=== PATIENT | female | born 1995 | race Caucasian/White ===

== ENCOUNTER 2023-07-23 11:51 | Emergency (ER) | payer OTHER, SELFPAY ==
[2023-07-23 11:52] VITALS: BP 141/100
--- NOTE | 2023-07-23 12:35 | ED.GENMED ---
History of Present Illness
General
Chief Complaint: Abdominal Pain
Time Seen by Provider: 07/23/23 12:10
Travel History
Have you had any contact with someone who has COVID-19?: No
Do you have any symptoms of coronavirus? Fever > 100 degrees, chills, cough, shortness of breath, sore throat, loss of taste or smell, muscle aches, or headache?: No
History of Present Illness
History of Present Illness:
27-year-old female with history of PCOS and morbid obesity presents to the emergency department for evaluation of left upper abdominal pain beginning approximately 10 to 12 hours prior to arrival associated with nausea and vomiting. Similar
presentation to this emergency department late in [address] scan. Patient reports that after the onset of symptoms she attempted to take Pepcid and omeprazole without relief. Does report frequent NSAID use at least once daily,
denies alcohol or tobacco use. No prior abdominal surgical history.
Past History
Past History
ED Past Medical History: Other (Morbid obesity)
ED Past Surgical History: None
Social History
Tobacco: Non-smoker
Alcohol: None
Drug: Marijuana
Personal: Single
Living: with family
Review of Systems
Review of Systems
Allergies reviewed?: Yes
All Other Systems: ROS reviewed and negative except as documented in HPI and ROS
Phy Exam
Physical Exam
Physical Exam:
GEN: Well appearing, NAD, WDWN
Eyes: PERRLA, EOMs intact, no scleral icterus
HENT: NCAT, oral mucosa moist
Lungs: CTAB, no wheezes, rales, rhonchi, normal chest wall excursion
Cardiac: RRR, no M/R/G Radial pulses 2+ bilat
Abdomen: Body habitus limits exam, mild epigastric tenderness without rigidity, no right upper quadrant tenderness, negative Cardona sign
Neuro: AO x 3
MSK: No gross deformity or ecchymosis.
Skin: No rashes, petechiae. Normal color, no pallor or jaundice.
Psych: Calm, cooperative, proper hygiene
Course
Orders/Labs/Results
Orders:
Orders
07/23/23 12:34
0.9% Sodium Chloride 1000 ml [Nss] 1,000 ml IV BOLUS
Ketorolac [Toradol] 15 mg IV NOW STA
Ondansetron Injectable [Zofran] 4 mg IV NOW STA
Test Result ONCE
07/23/23 12:50
Complete Blood Count/With Diff Urgent
Comprehensive Metabolic Panel Urgent
HCG, Serum Qualitative Screen Urgent
Lipase Urgent
Urinalysis Reflex To Culture Urgent
Date Specimen was Collected: 07/23/23
Time Specimen was Collected: 12:39
Urine Microscopic Reflex Cult Urgent
07/23/23 13:39
CT Abd/Pel (IV only)-DH only Urgent
Comment:
Reason For Exam: upper abd pain/vomiting
07/23/23 13:50
Morphine Sulfate 4 mg IV NOW STA
Abnormal Lab Results
07/23/23
12:50
WBC 14.4 H 10^3/uL
(4.8-10.8)
Hgb 11.8 L g/dL
(12.0-16.0)
Hct 36.6 L %
(37.0-47.0)
MCV 75.5 L fL
(81.0-99.0)
MCH 24.3 L pg
(27.0-31.0)
MCHC 32.2 L g/dL
(33.0-37.0)
RDW 15.9 H %
(11.5-14.5)
Abs Immat Gran (auto) 0.1 H 10^3/uL
(0-0.05)
Absolute Neuts (auto) 11.3 H 10^3/uL
(1.4-6.5)
Immature Gran % 0.8 H %
(0-0.5)
Neutrophils % 78.4 H %
(42.2-75.2)
Lymphocytes % 15.4 L %
(20.5-51.1)
Chloride 108 H mmol/L
(98-107)
Carbon Dioxide 21 L mmol/L
(22-30)
Urine Ketones Trace A
(Negative)
Ur Occult Blood Reflex Trace A
(Negative)
Urine Bacteria (Reflex) Few A
(Negative)
07/23/23 12:50
07/23/23 12:50
Vital Signs
Initial and Last Documented VS:
Initial Vital Signs
Temp Pulse Resp BP Pulse Ox
97.8 F 73 20 141/100 100
07/23/23 11:52 07/23/23 11:52 07/23/23 11:52 07/23/23 11:52 07/23/23 11:52
Last Documented Vital Signs
Temp Pulse Resp BP Pulse Ox
97.8 F 73 20 141/100 100
07/23/23 11:52 07/23/23 11:52 07/23/23 11:52 07/23/23 11:52 07/23/23 11:52
MDM/Problems Addressed
MDM/Problems Addressed:
Labs reveal mild leukocytosis with no other concerning findings. Due to the patient's body habitus limiting exam a CT was then obtained which showed no evidence for acute abdominal pathology. Suspect acute gastritis/peptic ulcer disease, will treat
supportively with PPIs and Carafate, encouraged the patient to take her PPIs daily and not just on demand
*Critical Care Note
Total Time (30-74mins, 75-104mins- exclusive of procedures): Not Applicable
ED Attending Note
-
Portions of this chart may have been created with voice recognition software.� Occasional wrong word or��sound alike� substitutions may have occurred due to the inherent limitations of voice recognition software.
Discharge Plan
Departure
Patient Disposition: Home (Routine Discharge)
Date of Disposition: 07/23/23
Time of Disposition: 15:10
Patient with high blood pressure during this ER visit?: No
Discharge Problem:
Acute upper abdominal pain
Instructions: Abdominal Pain
Prescriptions:
New
sucralfate [Carafate] 1 gram tablet
1 g PO AC Qty: 60 0RF
No Action
ondansetron 4 MG tablet,disintegrating
4 mg PO QIDPRN PRN (Reason: nausea/vomiting) Qty: 20 0RF
albuterol sulfate 2.5 MG/3 ML solution for nebulization
2.5 mg inhalation R Q4HPRN Qty: 30 0RF
prednisone 10 MG tablets,dose pack
10 mg PO Daily Qty: 1 0RF
Rx Instructions:
50mg x 2 days, 40mg x 2 days, 30mg x 2 days, 20mg x 2 days, 10mg x 2 days
Referrals:
Enrique Jean MD [Active] -
Johanna Hay CRNP [Family Provider] -
Activity Restrictions/Additional Instructions:
Continue your omeprazole daily
Take carafate before meals
Follow up with gastroenterology if symptoms do not improve
Interventions
Interventions:
*Risk Screen - Suicide Last Done: 07/23/23 13:24
*Neglect/Abuse Screening Last Done: 07/23/23 13:24
*ED COVID-19 Vaccine History Last Done: 07/23/23 11:52
RY-Sjuhcx-Cxwggavbng Assessment Last Done: 07/23/23 13:24
Discharge Date and Time
Print Language: SETSWANA
[2023-07-23] MEDS: ZOFRAN 4 MG IV (12:50)
[2023-07-23] MEDS: TORADOL 15 MG IV (12:50)
[2023-07-23] MEDS: NSS 1000 IV (12:50)
[2023-07-23 13:02] LABS: % Basophils 0.4 % (0-2); % Eosinophils 0.8 % (0-6); % Immature Granulocytes 0.8 % (0-0.5); % Lymphocytes 15.4 % (20.5-51.1); % Monocytes 4.2 % (1.7-9.3); % Neutrophils 78.4 % (42.2-75.2); Absolute Basophils 0.1 10^3/uL (0-0.2); Absolute Eosinophils 0.1 10^3/uL (0-0.7); Absolute Immature Granulocytes 0.1 10^3/uL (0-0.05); Absolute Lymphocytes 2.2 10^3/uL (1.2-3.4); Absolute Monocytes 0.6 10^3/uL (0.1-0.6); Absolute Neutrophils 11.3 10^3/uL (1.4-6.5); Hematocrit 36.6 % (37.0-47.0); Hemoglobin 11.8 g/dL (12.0-16.0); Mean Corp Hgb Conc. 32.2 g/dL (33.0-37.0); Mean Corpuscular Hgb 24.3 pg (27.0-31.0); Mean Corpuscular Volume 75.5 fL (81.0-99.0); Mean Platelet Volume 8.4 fL (7.4-10.4); Nucleated Red Blood Cells % 0 %; Platelet Count 385 10^3/uL (130-400); Red Blood Cell Count 4.85 10^6/uL (4.20-5.40); Red Cell Dist. Width 15.9 % (11.5-14.5); White Blood Cell Count 14.4 10^3/uL (4.8-10.8)
[2023-07-23 13:13] LABS: HCG, Serum Qualitative Screen Negative
[2023-07-23 13:17] LABS: ALT (SGPT) 16 U/L (0-35); AST (SGOT) 21 U/L (14-36); Alkaline Phosphatase 98 U/L (38-126); Blood Urea Nitrogen 10 mg/dl (7-17); Calcium 9.3 mg/dl (8.4-10.2); Carbon Dioxide 21 mmol/L (22-30); Chloride 108 mmol/L (98-107); Glucose 83 mg/dl (70-99); Lipase 73 U/L (23-300); Potassium 4.1 mmol/L (3.5-5.1); Sodium 136 mmol/L (135-145); Total Bilirubin 0.4 mg/dl (0.2-1.3); eGFR > 60.00
[2023-07-23] MEDS: MORPHINE SULFATE 4 MG IV (14:00)
[2023-07-23 14:10] LABS: Urine Albumin Negative (Neg - Trace); Urine Bilirubin Negative (Negative); Urine Character Clear (Clear); Urine Color Yellow; Urine Glucose Negative (Negative); Urine Ketone Trace (Negative); Urine Leukocyte Negative (Negative); Urine Nitrite Negative (Negative); Urine Occult Blood Trace (Negative); Urine Urobilinogen Negative (Neg - 1+)
[2023-07-23 14:24] LABS: Urine Red Blood Cell 0-2 /HPF (0-2); Urine White Cell 0-2 /HPF (0-5)
[2023-07-23 14:27] LABS: Urine Squamous Cell 16-20 /LPF (Few)
[2023-07-23 14:28] LABS: Urine Bacteria Few (Negative)
[2023-07-23 15:48] VITALS: BP 138/86
== END 2023-07-23 15:50 | disposition home or self-care (01) ==
LOC: EMR 11:51
PROVIDERS: Physician Assistant; EMERGENCY PHYSICIAN Emergency Medicine; FAMILY PHYSICIAN Registered Nurse
DX: R10.10 Upper abdominal pain, unspecified (principal)
CPT/HCPCS: 99285; 96374; 96375 ×2; 96361; 74177; 80053; 81003; 81015; 83690; 84703; 85025; Q9967

== ENCOUNTER 2024-02-21 19:15 | Emergency (ER) | payer OTHER, SELFPAY ==
[2024-02-21 19:15] VITALS: BMI 63.4
[2024-02-21 19:19] VITALS: BP 171/96
[2024-02-21 19:37] LABS: % Basophils 0.3 % (0-2); % Eosinophils 0.9 % (0-6); % Immature Granulocytes 0.5 % (0-0.5); % Lymphocytes 16.5 % (20.5-51.1); % Monocytes 4.3 % (1.7-9.3); % Neutrophils 77.5 % (42.2-75.2); Absolute Eosinophils 0.1 10^3/uL (0-0.7); Absolute Immature Granulocytes 0.1 10^3/uL (0-0.05); Absolute Lymphocytes 2.1 10^3/uL (1.2-3.4); Absolute Monocytes 0.5 10^3/uL (0.1-0.6); Absolute Neutrophils 9.7 10^3/uL (1.4-6.5); Hematocrit 39.2 % (37.0-47.0); Mean Corp Hgb Conc. 30.6 g/dL (33.0-37.0); Mean Corpuscular Hgb 23.1 pg (27.0-31.0); Mean Corpuscular Volume 75.5 fL (81.0-99.0); Mean Platelet Volume 8.3 fL (7.4-10.4); Nucleated Red Blood Cells % 0 %; Platelet Count 369 10^3/uL (130-400); Red Blood Cell Count 5.19 10^6/uL (4.20-5.40); Red Cell Dist. Width 15.4 % (11.5-14.5); White Blood Cell Count 12.5 10^3/uL (4.8-10.8)
[2024-02-21 19:54] LABS: HCG, Serum Qualitative Screen Negative
[2024-02-21 20:05] LABS: ALT (SGPT) 12 U/L (0-35); AST (SGOT) 19 U/L (14-36); Albumin 4.1 g/dl (3.5-5.0); Alkaline Phosphatase 90 U/L (38-126); Blood Urea Nitrogen 8 mg/dl (7-17); Calcium 9.2 mg/dl (8.4-10.2); Carbon Dioxide 20 mmol/L (22-30); Chloride 105 mmol/L (98-107); Glucose 91 mg/dl (70-99); Lipase 47 U/L (23-300); Potassium 4.4 mmol/L (3.5-5.1); Sodium 137 mmol/L (135-145); Total Bilirubin 0.6 mg/dl (0.2-1.3); Total Protein 6.9 g/dl (6.3-8.2); eGFR > 60.00
[2024-02-21 20:06] VITALS: BP 125/98
--- NOTE | 2024-02-21 20:28 | ED.GENMED ---
History of Present Illness
<Martha Santos PA-C - Last Filed: 02/22/24 13:43>
General
Chief Complaint: Abdominal Symptoms
Source: patient
Exam Limitations: none
Time Seen by Provider: 02/21/24 20:28
Nursing documentation reviewed up to this point in time: agreed with
History of Present Illness
History of Present Illness:
28-year-old female with a past medical history of gastritis presents to the emergency department today with concerns of diffuse abdominal pain that started around 2 hours ago. Patient states that the pain was sudden in onset. Patient states that
the pain is worse in the epigastric region but does radiate to the left lower quadrant. She also states that the pain radiates through the back. She denies chest pain. She also started develop nausea and vomiting. She feels as though she cannot
keep food down without feeling nauseated. She denies any fevers or chills. She states that this feels similar to when she had gastritis in the past. Patient denies rectal bleeding, she denies melanic stools. She denies dizziness,
lightheadedness, hemoptysis. She has no past abdominal surgical history. She states that she has tried Pepcid without relief. She states that she is supposed to be taking omeprazole every day but states that she has forgotten the past few days.
She is not been evaluated by cable tv installer.
Past History
<Martha Santos PA-C - Last Filed: 02/22/24 13:43>
Past History
ED Past Medical History: Other (Morbid obesity)
ED Past Surgical History: None
Social History
Tobacco: Non-smoker
Alcohol: None
Drug: Marijuana
Personal: Single
Living: with family
Review of Systems
<Martha Santos PA-C - Last Filed: 02/22/24 13:43>
Review of Systems
All Other Systems: ROS reviewed and negative except as documented in HPI and ROS
Phy Exam
<Martha Santos PA-C - Last Filed: 02/22/24 13:43>
Physical Exam
Physical Exam:
General: Patient is well appearing and in no acute distress; non-toxic
Skin: Warm and dry, no rashes or lesions
Head: Normocephalic, atraumatic
Eyes: Sclera non-icteric. EOMs intact.
Cardiac: Patient mildly tachycardic otherwise regular rhythm, no murmurs
Pulm: Normal respiratory effort, no wheezes, rales, rhonchi
Abdomen: Epigastric abdominal tenderness noted, bilateral lower abdominal tenderness with rebound tenderness noted, no palpable abdominal masses
Neuro: CN II-XII intact, no focal neurologic deficits.
Psychiatric: Appropriate mood and affect.
Course
<VILMA Short Last Filed: 02/22/24 13:43>
Orders/Labs/Results
Orders:
Orders
02/21/24 19:25
Test Result ONCE
02/21/24 19:31
Complete Blood Count/With Diff Urgent
Comprehensive Metabolic Panel Urgent
HCG, Serum Qualitative Screen Urgent
Lipase Urgent
02/21/24 20:34
CT Abd/pelvis W Iv Cont Urgent
Comment:
Reason For Exam: epigastric abdominal pain
Ondansetron Injectable [Zofran] 4 mg IV NOW STA
Pantoprazole [Protonix IV] 40 mg IV NOW STA
02/21/24 22:07
Sucralfate [Carafate] 1 gram PO NOW STA
02/21/24 22:16
Mag Hydrox/Al Hydrox/Simeth [Maalox] 30 ml Phenobarb/Hyoscy/Atropine/Scop [] 10 ml PO NOW
02/21/24 22:17
Acetaminophen [Tylenol] 1,000 mg PO NOW STA
02/21/24 22:19
Mag Hydrox/Al Hydrox/Simeth [Maalox] 30 ml .ROUTE .STK-MED ONE
Phenobarb/Hyoscy/Atropine/Scop [] 10 ml .ROUTE .STK-MED ONE
02/21/24 22:42
Morphine Sulfate 4 mg IV NOW STA
Ondansetron Injectable [Zofran] 4 mg IV NOW STA
02/21/24 23:36
US Abdomen Complete/Upper Urgent
Reason For Exam: Upper abdominal pain. Evaluate gallbladder
Abnormal Lab Results
02/21/24
19:31
WBC 12.5 H 10^3/uL
(4.8-10.8)
MCV 75.5 L fL
(81.0-99.0)
MCH 23.1 L pg
(27.0-31.0)
MCHC 30.6 L g/dL
(33.0-37.0)
RDW 15.4 H %
(11.5-14.5)
Abs Immat Gran (auto) 0.1 H 10^3/uL
(0-0.05)
Absolute Neuts (auto) 9.7 H 10^3/uL
(1.4-6.5)
Neutrophils % 77.5 H %
(42.2-75.2)
Lymphocytes % 16.5 L %
(20.5-51.1)
Carbon Dioxide 20 L mmol/L
(22-30)
02/21/24 19:31
02/21/24 19:31
Vital Signs
Initial and Last Documented VS:
Initial Vital Signs
Temp Pulse Resp BP Pulse Ox
98 F 73 18 171/96 96
02/21/24 19:19 02/21/24 19:19 02/21/24 19:19 02/21/24 19:19 02/21/24 19:19
Last Documented Vital Signs
Temp Pulse Resp BP Pulse Ox
98 F 73 18 119/66 96
02/21/24 19:19 02/21/24 19:19 02/21/24 19:19 02/22/24 03:00 02/22/24 03:30
<Jose Devries, DO - Last Filed: 02/22/24 03:27>
Orders/Labs/Results
Orders:
Orders
02/21/24 19:25
Test Result ONCE
02/21/24 19:31
Complete Blood Count/With Diff Urgent
Comprehensive Metabolic Panel Urgent
HCG, Serum Qualitative Screen Urgent
Lipase Urgent
02/21/24 20:34
CT Abd/pelvis W Iv Cont Urgent
Comment:
Reason For Exam: epigastric abdominal pain
Ondansetron Injectable [Zofran] 4 mg IV NOW STA
Pantoprazole [Protonix IV] 40 mg IV NOW STA
02/21/24 22:07
Sucralfate [Carafate] 1 gram PO NOW STA
02/21/24 22:16
Mag Hydrox/Al Hydrox/Simeth [Maalox] 30 ml Phenobarb/Hyoscy/Atropine/Scop [] 10 ml PO NOW
02/21/24 22:17
Acetaminophen [Tylenol] 1,000 mg PO NOW STA
02/21/24 22:19
Mag Hydrox/Al Hydrox/Simeth [Maalox] 30 ml .ROUTE .STK-MED ONE
Phenobarb/Hyoscy/Atropine/Scop [] 10 ml .ROUTE .STK-MED ONE
02/21/24 22:42
Morphine Sulfate 4 mg IV NOW STA
Ondansetron Injectable [Zofran] 4 mg IV NOW STA
02/21/24 23:36
US Abdomen Complete/Upper Urgent
Reason For Exam: Upper abdominal pain. Evaluate gallbladder
Abnormal Lab Results
02/21/24
19:31
WBC 12.5 H 10^3/uL
(4.8-10.8)
MCV 75.5 L fL
(81.0-99.0)
MCH 23.1 L pg
(27.0-31.0)
MCHC 30.6 L g/dL
(33.0-37.0)
RDW 15.4 H %
(11.5-14.5)
Abs Immat Gran (auto) 0.1 H 10^3/uL
(0-0.05)
Absolute Neuts (auto) 9.7 H 10^3/uL
(1.4-6.5)
Neutrophils % 77.5 H %
(42.2-75.2)
Lymphocytes % 16.5 L %
(20.5-51.1)
Carbon Dioxide 20 L mmol/L
(22-30)
02/21/24 19:31
02/21/24 19:31
Vital Signs
Initial and Last Documented VS:
Initial Vital Signs
Temp Pulse Resp BP Pulse Ox
98 F 73 18 171/96 96
02/21/24 19:19 02/21/24 19:19 02/21/24 19:19 02/21/24 19:19 02/21/24 19:19
Last Documented Vital Signs
Temp Pulse Resp BP Pulse Ox
98 F 73 18 119/66 96
02/21/24 19:19 02/21/24 19:19 02/21/24 19:19 02/22/24 03:00 02/22/24 03:30
Rastalt;Martha Santos PA-C - Last Filed: 02/22/24 13:43>
MDM/Problems Addressed
Differential Diagnosis Includes:
Differentials include gastritis, duodenitis, perforated viscus, esophagitis, pancreatitis, diverticulitis
MDM/Problems Addressed:
28-year-old female with a past medical history of gastritis presents to the emergency department today with concerns of diffuse abdominal pain that started around 2 hours ago. Patient states that the pain was sudden in onset. Patient states that
the pain is worse in the epigastric region but does radiate to the left lower quadrant. She states that this feels like when she had gastritis. On physical exam, patient appears uncomfortable and she does have significant abdominal tenderness to
palpation. Patient was sent for CT scan of the abdomen which did not show any concerning findings. Patient was given PPI, GI cocktail, morphine, Tylenol, notes minimal improvement in her symptoms. Patient sent for US for further evaluation of
gallbladder, did show stones but no cholecystitis. Patient stable for discharge.
Chronic conditions affecting care:
gastritis, IBS, PCOS
<Martha Santos PA-C - Last Filed: 02/22/24 13:43>
*Pulse Oximetry
Patient hypoxic: no
*Critical Care Note
Total Time (30-74mins, 75-104mins- exclusive of procedures): Not Applicable
Data Reviewed
Review of Other/Old Records Reveals: Records (reviewed previous ER documentation from 07/23/23 and 01/20/23 where patient seen for similar symptoms ) and Discharge Summary (no discharge summaries in [facility] to review)
Source: patient and records
ED Attending Note
<Martha Santos PA-C - Last Filed: 02/22/24 13:43>
-
Portions of this chart may have been created with voice recognition software.� Occasional wrong word or��sound alike� substitutions may have occurred due to the inherent limitations of voice recognition software.
<Jose Devries DO - Last Filed: 02/22/24 03:27>
ED Attending Note
Patient seen and examined by attending physician: Yes
I performed the substantive portion of visit, reviewed & personally made and approve the management plan that is documented in note by myself or MARTIR.: Yes
ED Attending Note:
I have seen and evaluated the patient with a [id number] encounter. I have spoken to the advance practicer provider and involved in the medical history, the physical exam, medical decision making.
Evaluation and management service: agree unless noted differently below.
Results interpretation: agree unless noted differently below.
Focused HPI: 28-year-old female presenting with abdominal pain when she eats
Physical exam: Mild right upper quadrant tenderness
Medical Decision Making: Ultrasound shows evidence of cholelithiasis. There is no evidence of acute cholecystitis. She feels comfortable going home. Discussed outpatient follow-up with general surgery. Discussed incidental finding of mild
splenomegaly
Discharge Plan
Departure
Patient Disposition: Home (Routine Discharge)
Date of Disposition: 02/22/24
Time of Disposition: 03:25
Patient with high blood pressure during this ER visit?: Yes
Discharge Problem:
Symptomatic cholelithiasis
Instructions: Acid reflux and GERD in adults, Gallstones ED, BLOOD PRESSURE
Prescriptions:
New
omeprazole 20 mg capsule,delayed release(DR/EC)
20 mg PO DAILY 14 Days Qty: 14 0RF
ondansetron 4 mg tablet,disintegrating
4 mg PO DAILY PRN (Reason: nausea and vomiting) Qty: 8 0RF
No Action
ondansetron 4 MG tablet,disintegrating
4 mg PO QIDPRN PRN (Reason: nausea/vomiting) Qty: 20 0RF
albuterol sulfate 2.5 MG/3 ML solution for nebulization
2.5 mg inhalation R Q4HPRN Qty: 30 0RF
prednisone 10 MG tablets,dose pack
10 mg PO Daily Qty: 1 0RF
Rx Instructions:
50mg x 2 days, 40mg x 2 days, 30mg x 2 days, 20mg x 2 days, 10mg x 2 days
sucralfate [Carafate] 1 gram tablet
1 g PO AC Qty: 60 0RF
Referrals:
Venus Waldrop MD [Active] - Call in 1-3 days for appt
Yaya Sabillon MD [Active] -
Johanna Hay CRNP [Family Provider] -
Activity Restrictions/Additional Instructions:
Please take 20 mg of omeprazole once daily for 2-week trial. Please follow-up with gastroenterology, you may need an endoscopy to further evaluate your symptoms.
Since your symptoms may be related to gallstones, please follow-up with the general surgeon.
Please return to the emergency department should you experience any acute worsening of your symptoms, chest pain, lightheadedness, dark tarry stools, rectal bleeding, fainting spells, or any other signs or symptoms concerning to you.
Please follow-up with your PCP as needed.
Interventions
Interventions:
*Risk Screen - Suicide Last Done: 02/21/24 19:16
*General Assessment Last Done: 02/21/24 20:12
*ED COVID-19 Vaccine History Last Done: 02/21/24 20:12
*Nursing Disposition Last Done: 02/22/24 03:42
[facility]-Cptusl-Gvxpmiiqgo Assessment Last Done: 02/21/24 20:13
Discharge Date and Time
Discharge Date/Time: 02/22/24 03:43
Print Language: IRISH
[2024-02-21 21:09] VITALS: BP 113/82
[2024-02-21] MEDS: ZOFRAN 4 MG IV ×2 (21:09→23:06)
[2024-02-21] MEDS: PROTONIX IV 40 MG IV (21:11)
[2024-02-21 22:00] VITALS: BP 122/104
[2024-02-21] MEDS: MAALOX 40 PO (22:21)
[2024-02-21] MEDS: TYLENOL 1000 MG PO (22:29)
[2024-02-21 23:00] VITALS: BP 131/110
[2024-02-21] MEDS: MORPHINE SULFATE 4 MG IV (23:06)
[2024-02-22] VITALS: BP 146/80
[2024-02-22 01:00] VITALS: BP 135/88
[2024-02-22 03:00] VITALS: BP 119/66
== END 2024-02-22 03:43 | disposition home or self-care (01) ==
LOC: EMR 19:15
PROVIDERS: Emergency Medicine; EMERGENCY PHYSICIAN Student in an Organized Health Care Education/Training Program; FAMILY PHYSICIAN Registered Nurse
DX: K80.20 Calculus of gallbladder without cholecystitis without obstruction (principal); E66.01 Morbid (severe) obesity due to excess calories; E28.2 Polycystic ovarian syndrome; K58.9 Irritable bowel syndrome, unspecified; Z79.899 Other long term (current) drug therapy; Z87.19 Personal history of other diseases of the digestive system
CPT/HCPCS: 99284; 96374; 96375; 96376; 74177; 76700; 80053; 83690; 84703; 85025; Q9967

== ENCOUNTER 2024-05-14 06:13 | Day surgery (SDC) | payer OTHER, SELFPAY ==
[2024-05-14 07:01] VITALS: BMI 63.2
[2024-05-14 07:17] VITALS: BP 150/92
[2024-05-14 07:38] VITALS: BMI 63.2
[2024-05-14 08:49] VITALS: BP 107/67
[2024-05-14 09:00] VITALS: BP 100/82
[2024-05-14 09:15] VITALS: BP 116/78
== END 2024-05-14 09:20 | disposition home or self-care (01) ==
LOC: SDS 06:13
PROVIDERS: ATTENDING PHYSICIAN Specialist; FAMILY PHYSICIAN Registered Nurse
DX: D12.3 Benign neoplasm of transverse colon (principal); R19.4 Change in bowel habit; K22.89 Other specified disease of esophagus; K31.89 Other diseases of stomach and duodenum; R10.13 Epigastric pain
CPT/HCPCS: 45385; 45380; 43239; 88305; 88342